=== PATIENT | male | born 1975 | race African-American/Black ===

== ENCOUNTER 2017-02-09 13:11 | Emergency (ER) | payer SELFPAY ==
[~2017-02-09] VITALS: Ht 185.4 cm; Wt 125.0 kg
[2017-02-09] MEDS ORDERED: HYDROCODONE/ACETAMINOPHEN 5/325MG TABLET PO ONE (17:15)
[2017-02-09 17:40] VITALS: BP 157/107
== END 2017-02-09 17:43 | disposition home or self-care (01) ==
LOC: ER 16:03
DX: S43.402A Unspecified sprain of left shoulder joint, initial encounter (principal); I10 Essential (primary) hypertension; Z98.890 Other specified postprocedural states; V43.52XA Car driver injured in collision with other type car in traffic accident, initial encounter; Y93.89 Activity, other specified; Y92.488 Other paved roadways as the place of occurrence of the external cause
CPT/HCPCS: 99283